=== PATIENT | female | born 1990 | race Caucasian/White ===

== ENCOUNTER 2020-03-18 14:22 | Outpatient (REF) | payer OTHER, SELFPAY | END 2020-03-18 14:23 | disposition home or self-care (01) | LOC: HO.LAB 14:22 | PROVIDERS: Visit Provider Internal Medicine | DX: Z20.828 Contact with and (suspected) exposure to other viral communicable diseases (principal) | CPT/HCPCS: C9803; U0003 ==

== ENCOUNTER 2025-03-06 17:08 | Emergency (ER) | payer OTHER, SELFPAY ==
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
[2025-03-06 17:22] VITALS: BP 122/57; PULSE 84; RESP 18; TEMP 36.7; O2SAT 97; BMI 26.5
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
[2025-03-06 18:06] VITALS: BP 111/72; PULSE 81; RESP 16; TEMP 36.8; O2SAT 99
[2025-03-06 18:32] VITALS: BP 111/72; PULSE 81; RESP 16; TEMP 36.8; O2SAT 99
--- OUTSIDE RECORDS SUMMARY | 2025-03-06 19:09 | XMS_ITS | Data Portability ---
Author Organization [facility], Main Office Address [address] [facility] [address] [place] [id number] Care Team Providers Care Floor Plan Adjuster Name Role Phone MERRILL GARRETT Machine Assembler For Puller Over [facility] EMANUEL MARISCAL Primary Care Provider [phone] Assessment Encounter Date Assessment Date Assessment LastModified by Organization Details LastModified Time 07/10/2020 07/10/2020 This service was provided using telemedicine. Patient consented to telephone visit Patient was located at other Provider was located in the office. No other persons participated in the telemedicine visit except for the patient unless otherwise indicated here. Total time of visit was 13 minutes. [email or web address] Not available 07/10/2020 09:21:49 Plan of Treatment Reminders Order Date Submit Date Provider Last Modified By Organization Details Last Modified Time Details Appointments None recorded. Lab CMP, serum or plasma 2019 [facility], [address], [address], [place], [address], 0 19:52:01 CBC w/ auto diff 2019 020 [facility], [address], [place], [address], 0 16:01:08 T4, free, serum 2019 020 [facility], [address], [address], [place], [address], 0 20:55:42 TSH, serum or plasma 2019 020 [facility], [address] [facility], [facility] [address], [place], [address], 0 20:55:43 thyroid peroxidase (tpo) Ab, serum 2019 020 [facility], [address] [facility], [facility] [address], [place], [address], 0 09:29:49 Referral None recorded. Procedures None recorded. Surgeries None recorded. Imaging None recorded. Medication Orders diclofenac 1 % topical gel 2021 022 [facility]/Pharmacy #[id number], [address] [place], [address], 11:34:02 lidocaine 3 %-hydrocort isone 0.5 % rectal cream 2020 021 DBA_PATCH _[id number] [facility]/Pharmacy #[id number], [address] [place], [address], 09:31:48 compounded medication 2020 [email or web address] [facility] [place], [address] [place] [address], [address], 2 11:07:54 ciprofloxac in 250 mg tablet 2020 021 [facility]/Pharmacy #[id number], [address] [facility], [place], [address], 11:19:45 Pyridium 200 mg tablet 2020 021 [id number], [address] [place], [address], 11:19:23 Patient TargetsNo targets recorded. Patient Instructions Encounter Date Encounter Id Patient Instructions Last Modified By Organization Details Last Modified Time 01/18/2020 [id number] call or return for worsening or concerns. [email or web address] Not available 01/18/2020 09:29:06 07/10/2020 [id number] Follow up if no improvement or if symptoms worsen. [email or web address] Not available 07/10/2020 09:20:50 02/13/2021 [id number] call or return for worsening or concerns [email or web address] Not available 02/13/2021 10:52:07 02/16/2022 [id number] : care instructions [email or web address] Not available 02/16/2022 11:36:18 wrist tendinitis : exercises jthabet Not available 02/16/2022 11:33:33 de quervain's disease: exercises jthabet Not available 02/16/2022 11:33:33 call/ return for worsening or concerns. [email or web address] Not available 02/16/2022 11:18:29 Reason for Referral None Reported. Results Created Date Observation Date Name Description Value Unit Range Abnormal Flag Note LastModifiedBy Organization Detail LastModifiedTime 01/18/2001/18/2020 CBC w/ auto diff WBC 7.5 K/mm3 (4.0-1 1.0) Not Available [facility] (Centralized Electronic Ordering - All Locations) Patient Can Go To The Location Of Their Choice, [id number] 01/18/2020 16:01:01/18/2001/18/2020 CBC w/ auto diff RBC 4.07 M/mm3 (4.20- 5.40) low Not Available [facility] (Centralized Electronic Ordering - All Locations) Patient Can Go To The Location Of Their Choice, [id number] 01/18/2020 16:01:01/18/2001/18/2020 CBC w/ auto diff HGB 13.7 gm/dL (11.7- 15.5) Not Available [facility] (Centralized Electronic Ordering - All Locations) Patient Can Go To The Location Of Their Choice, [id number] 01/18/2020 16:01:01/18/2001/18/2020 CBC w/ auto diff HCT 42.3 % (35.7- 45.8) Not Available [facility] (Centralized Electronic Ordering - All Locations) Patient Can Go To The Location Of Their Choice, [id number] 01/18/2020 16:01:01/18/2001/18/2020 CBC w/ auto diff MCV 103.9 fL (80.0- 100.0) high Not Available [facility] (Centralized Electronic Ordering - All Locations) Patient Can Go To The Location Of Their Choice, 01/18/2020 16:01:01/18/2001/18/2020 CBC w/ auto diff MCH 33.7 pg (27.0- 34.0) Not Available [facility] (Centralized Electronic Ordering - All Locations) Patient Can Go To The Location Of Their Choice, 01/18/2020 16:01:01/18/2001/18/2020 CBC w/ auto diff MCHC 32.4 g/dL (33.0- 37.0) low Not Available [facility] (Centralized Electronic Ordering - All Locations) Patient Can Go To The Location Of Their Choice, 01/18/2020 16:01:01/18/2001/18/2020 CBC w/ auto diff plt 220 K/mm3 (150-4 60) Not Available [facility] (Centralized Electronic Ordering - All Locations) Patient Can Go To The Location Of Their Choice, 01/18/2020 16:01:01/18/2001/18/2020 CBC w/ auto diff RDW-SD 44.9 fL (<47.0 ) Not Available [facility] (Centralized Electronic Ordering - All Locations) Patient Can Go To The Location Of Their Choice, 01/18/2020 16:01:01/18/2001/18/2020 CBC w/ auto diff MPV 10.6 fL (9.4-1 2.4) Not Available [facility] (Centralized Electronic Ordering - All Locations) Patient Can Go To The Location Of Their Choice, 01/18/2020 16:01:01/18/2001/18/2020 CBC w/ auto diff automated NRBC 0.0 #/100 _WBC' s Not Available [facility] (Centralized Electronic Ordering - All Locations) Patient Can Go To The Location Of Their Choice, 01/18/2020 16:01:01/18/2001/18/2020 CBC w/ auto diff abs. NRBC 0.0 K/mm3 Not Available [facility] (Centralized Electronic Ordering - All Locations) Patient Can Go To The Location Of Their Choice, 01/18/2020 16:01:01/18/2001/18/2020 CBC w/ auto diff neut # 4.8 K/mm3 (1.3-7 .0) Not Available [facility] (Centralized Electronic Ordering - All Locations) Patient Can Go To The Location Of Their Choice, 01/18/2020 16:01:01/18/2001/18/2020 CBC w/ auto diff lymph # 2.1 K/mm3 (0.8-3 .1) Not Available [facility] (Centralized Electronic Ordering - All Locations) Patient Can Go To The Location Of Their Choice, 01/18/2020 16:01:01/18/2001/18/2020 CBC w/ auto diff mono# 0.4 K/mm3 (0.4-0 .9) Not Available [facility] (Centralized Electronic Ordering - All Locations) Patient Can Go To The Location Of Their Choice, 01/18/2020 16:01:01/18/2001/18/2020 CBC w/ auto diff eo # 0.2 K/mm3 (0.0-0 .4) Not Available [facility] (Centralized Electronic Ordering - All Locations) Patient Can Go To The Location Of Their Choice, 01/18/2020 16:01:01/18/2001/18/2020 CBC w/ auto diff baso # 0.1 K/mm3 (0.0-0 .1) Not Available [facility] (Centralized Electronic Ordering - All Locations) Patient Can Go To The Location Of Their Choice, 01/18/2020 16:01:01/18/2001/18/2020 CBC w/ auto diff abs. imm gran 0.0 K/mm3 Not Available [facility] (Centralized Electronic Ordering - All Locations) Patient Can Go To The Location Of Their Choice, 01/18/2020 16:01:01/18/2001/18/2020 CBC w/ auto diff neut 63.6 % (44-76 ) Not Available [facility] (Centralized Electronic Ordering - All Locations) Patient Can Go To The Location Of Their Choice, 01/18/2020 16:01:01/18/2001/18/2020 CBC w/ auto diff lymph 28.5 % (15-43 ) Not Available [facility] (Centralized Electronic Ordering - All Locations) Patient Can Go To The Location Of Their Choice, 01/18/2020 16:01:01/18/2001/18/2020 CBC w/ auto diff monocyte 4.8 % (4.5-1 0.5) Not Available [facility] (Centralized Electronic Ordering - All Locations) Patient Can Go To The Location Of Their Choice, 01/18/2020 16:01:01/18/2001/18/2020 CBC w/ auto diff eo 2.0 % (0-6) Not Available [facility] (Centralized Electronic Ordering - All Locations) Patient Can Go To The Location Of Their Choice, 01/18/2020 16:01:01/18/2001/18/2020 CBC w/ auto diff baso 0.8 % (0-2) Not Available [facility] (Centralized Electronic Ordering - All Locations) Patient Can Go To The Location Of Their Choice, 01/18/2020 16:01:01/18/2001/18/2020 CBC w/ auto diff imm gran 0.3 % Not Available [facility] (Centralized Electronic Ordering - All Locations) Patient Can Go To The Location Of Their Choice, 01/18/2020 16:01:01/18/2001/18/2020 CMP, serum or plasm a glucose 90 mg/dL (70-99 ) Not Available [facility] (Centralized Electronic Ordering - All Locations) Patient Can Go To The Location Of Their Choice, 01/18/2020 19:52:01/18/2001/18/2020 CMP, serum or plasm a BUN 14 mg/dL (6-20) Not Available [facility] (Centralized Electronic Ordering - All Locations) Patient Can Go To The Location Of Their Choice, 01/18/2020 19:52:01/18/2001/18/2020 CMP, serum or plasm a creatinine 0.8 mg/dL (0.5-1 .0) Not Available [facility] (Centralized Electronic Ordering - All Locations) Patient Can Go To The Location Of Their Choice, 01/18/2020 19:52:01/18/2001/18/2020 CMP, serum or plasm a sodium 141 mmol/ L (133-1 45) Not Available [facility] (Centralized Electronic Ordering - All Locations) Patient Can Go To The Location Of Their Choice, 01/18/2020 19:52:01/18/2001/18/2020 CMP, serum or plasm a potassium 4.4 mmol/ L (3.6-5 .2) Not Available [facility] (Centralized Electronic Ordering - All Locations) Patient Can Go To The Location Of Their Choice, 01/18/2020 19:52:01/18/2001/18/2020 CMP, serum or plasm a chloride 104 mmol/ L (98-10 7) Not Available [facility] (Centralized Electronic Ordering - All Locations) Patient Can Go To The Location Of Their Choice, 01/18/2020 19:52:01/18/2001/18/2020 CMP, serum or plasm a bicarbonate 26 mmol/ L (22-29 ) Not Available [facility] (Centralized Electronic Ordering - All Locations) Patient Can Go To The Location Of Their Choice, 01/18/2020 19:52:01/18/2001/18/2020 CMP, serum or plasm a anion gap 11 (4-17) Not Available [facility] (Centralized Electronic Ordering - All Locations) Patient Can Go To The Location Of Their Choice, 01/18/2020 19:52:01/18/2001/18/2020 CMP, serum or plasm a albumin 5.2 gm/dL (3.4-4 .8) high Not Available [facility] (Centralized Electronic Ordering - All Locations) Patient Can Go To The Location Of Their Choice, 01/18/2020 19:52:01/18/2001/18/2020 CMP, serum or plasm a calcium 9.8 mg/dL (8.6-1 0.5) Not Available [facility] (Centralized Electronic Ordering - All Locations) Patient Can Go To The Location Of Their Choice, 01/18/2020 19:52:01/18/2001/18/2020 CMP, serum or plasm a bilirubin,to carlos 0.5 mg/dL (0-1.2 ) Not Available [facility] (Centralized Electronic Ordering - All Locations) Patient Can Go To The Location Of Their Choice, 01/18/2020 19:52:01/18/2001/18/2020 CMP, serum or plasm a total protein 7.1 gm/dL (6.2-8 .2) Not Available [facility] (Centralized Electronic Ordering - All Locations) Patient Can Go To The Location Of Their Choice, 01/18/2020 19:52:01/18/2001/18/2020 CMP, serum or plasm a Ag ratio 2.7 Not Available [facility] (Centralized Electronic Ordering - All Locations) Patient Can Go To The Location Of Their Choice, 01/18/2020 19:52:01/18/2001/18/2020 CMP, serum or plasm a AST 22 U/L (0-32) Not Available [facility] (Centralized Electronic Ordering - All Locations) Patient Can Go To The Location Of Their Choice, 01/18/2020 19:52:01/18/2001/18/2020 CMP, serum or plasm a alk phos 68 U/L (35-10 4) Not Available [facility] (Centralized Electronic Ordering - All Locations) Patient Can Go To The Location Of Their Choice, 01/18/2020 19:52:01/18/2001/18/2020 CMP, serum or plasm a ALT 15 U/L (0-33) Not Available [facility] (Centralized Electronic Ordering - All Locations) Patient Can Go To The Location Of Their Choice, 01/18/2020 19:52:01/18/2001/18/2020 CMP, serum or plasm a est GFR non 102 mL/mi n/1.7 3_M2 Creat inine based estim ated glome rular filtr ation rate (eGFR ) is calcu lated using the Chron ic Kidne y Disea se Epide miolo gy Colla borat ion (CKD- EPI). The CKD-E PI creat inine equat ion has not been valid ated in child christian (<18 years ), pregn ant women or in some racia l or ethni c subgr oups other than Cauca sians and Afric an Ameri cans. Not Available [facility] (Centralized Electronic Ordering - All Locations) Patient Can Go To The Location Of Their Choice, 01/18/2020 19:52:01 01/18/2001/18/2020 CMP, serum or plasm a est GFR 118 mL/mi n/1.7 3_M2 Creat inine based estim ated glome rular filtr ation rate (eGFR ) is calcu lated using the Chron ic Kidne y Disea se Epide miolo gy Colla borat ion (CKD- EPI). The CKD-E PI creat inine equat ion has not been valid ated in child christian (<18 years ), pregn ant women or in some racia l or ethni c subgr oups other than Cauca sians and Afric an Ameri cans. Not Available [facility] (Centralized Electronic Ordering - All Locations) Patient Can Go To The Location Of Their Choice, 01/18/2020 19:52:01 01/18/2001/18/2020 T4, free, serum free T4 1.16 NG/dL (0.70- 1.80) Not Available [facility] (Centralized Electronic Ordering - All Locations) Patient Can Go To The Location Of Their Choice, 01/18/2020 20:55:42 01/18/2001/18/2020 TSH, serum or plasm a TSH 0.44 uIU/m L (0.4-4 .00) Not Available [facility] (Centralized Electronic Ordering - All Locations) Patient Can Go To The Location Of Their Choice, 01/18/2020 20:55:43 01/18/2001/19/2020 thyro id perox idase (tpo) Ab, serum anti thyroid peroxidase Ab <3.0 IU/mL (<5.6) Antib qian measu remen t repre sents one rocio eter in a multi crite joanna diagn ostic proce ss. Corre late resul ts with clini sarita prese ntati on. This test was perfo rmed on the Abbot t Archi tect immun oassa y syste m. Not Available [facility] (Centralized Electronic Ordering - All Locations) Patient Can Go To The Location Of Their Choice, 01/19/2020 09:29:49 Result Notes None recorded. Problems Name Problem SNOMED Code Status Onset Date Resolution Date Notes Provider Name and Address Organization Details Recorded Time Administ ration of Haemophi jose manuel influenz ae type b vaccine Completed 200911/06/2013 RECORDED 02/04/20 10 10:41AM BY TIM PUGA, HISTORIC AL SUMMARY Liyah WATTS- [address] [facility] [address], [place], [place], [address], [facility] 6 13:53:03 Active or passive immuniza tion Completed 200911/06/2013 RECORDED 02/04/20 10 10:38AM BY TIM PUGA HISTORIC AL SUMMARY Liyah WATTS- [address] [facility] [address], [place], [address], [facility] 6 13:53:03 Administ ration of viral vaccine Completed 200911/06/2013 RECORDED 02/04/20 10 10:42AM BY TIM PUGA, HISTORIC AL SUMMARY Liyah WATTS- [address] [facility] [address], [place], [address], [facility] 6 13:53:03 Administ ration of poliomye litis vaccine Completed 200911/06/2013 RECORDED 02/04/20 10 10:35AM BY TIM PUGA, HISTORIC AL SUMMARY Liyah WATTS- [address] [facility] [address], [place], [address], [facility] 6 13:53:03 Administ ration of diphther ia, pertussi s, and tetanus vaccine Completed 200911/06/2013 RECORDED 02/04/20 10 10:33AM BY TIM PUGA HISTORIC AL SUMMARY Liyah WATTS-Cristy [address] [facility] [address], [place], [address], [facility] 6 13:53:03 Administ ration of bacteria l and viral vaccine Completed 200911/06/2013 RECORDED 02/04/20 10 10:35AM BY TIM PUGA HISTORIC AL SUMMARY Liyah WATTS-Cristy [address] [facility] [address], [place], [address], [facility] 6 13:53:03 Administ ration of measles and mumps and rubella vaccine Completed 200911/06/2013 RECORDED 02/04/20 10 10:33AM BY TIM PUGA HISTORIC AL SUMMARY Liyah Alexander [place]- [address] [facility] [address], [place], [address], [facility] 6 13:53:03 Varicell a vaccinat ion Completed 200911/06/2013 RECORDED 02/04/20 10 10:40AM BY JANET CHANDRAIC AL SUMMARY Liyah Alexander [place]- [address] [facility] [address], [place], [address], [facility] 6 13:53:03 Administ ration of Haemophi jose manuel influenz ae type b vaccine Completed 200911/29/2013 RECORDED 02/04/20 10 10:41AM BY TIM PUGA HISTORIC AL SUMMARY Liyah Alexander UT-C [address] [facility] [address], [place], [address], [facility] 6 13:53:03 Active or passive immuniza tion Completed 200911/29/2013 RECORDED 02/04/20 10 10:38AM BY JANET CHANDRAIC AL SUMMARY Liyah Alexander [place]- [address] [facility] [address], [place], [address], [facility] 6 13:53:03 Administ ration of viral vaccine Completed 200911/29/2013 RECORDED 02/04/20 10 10:42AM BY TIM PUGA HISTORIC AL SUMMARY Liyah Alexander [place]-C [address] [facility] [address], [place], [address], [facility] 6 13:53:03 Administ ration of poliomye litis vaccine Completed 200911/29/2013 RECORDED 02/04/20 10 10:35AM BY TIM PUGA HISTORIC AL SUMMARY [facility] [address] [facility] [address], [place], [address], [facility] 6 13:53:03 Administ ration of diphther ia, pertussi s, and tetanus vaccine Completed 200911/29/2013 RECORDED 02/04/20 10 10:33AM BY TIM PUGA, HISTORIC AL SUMMARY Liyah [facility] [address] [facility] [address], [place], [address], [facility] 6 13:53:03 Administ ration of bacteria l and viral vaccine Completed 200911/29/2013 RECORDED 02/04/20 10 10:35AM BY TIM PUGA, HISTORIC AL SUMMARY Liyah [facility] [address] [facility] [address], [place], [address], [facility] 6 13:53:03 Administ ration of measles and mumps and rubella vaccine Completed 200911/29/2013 RECORDED 02/04/20 10 10:33AM BY TIM PUGA, HISTORIC AL SUMMARY Liyah [facility] [address] [facility] [address], [place], [address], [facility] 6 13:53:03 Varicell a vaccinat ion Completed 200911/29/2013 RECORDED 02/04/20 10 10:40AM BY TIM PUGA, HISTORIC AL [facility] [address] [facility] [address], [place], [address], [facility] 6 13:53:03 Administ ration of Haemophi jose manuel influenz ae type b vaccine Completed 200911/30/2013 RECORDED 02/04/20 10 10:41AM BY TIM PUGA HISTORIC AL SUMMARY Liyah Alexander PA- [address] [facility] [address], [place], [place], [address], [facility] 6 13:53:03 Active or passive immuniza tion Completed 200911/30/2013 RECORDED 02/04/20 10 10:38AM BY TIM PUGA HISTORIC AL SUMMARY Liyah CEJA [address] [facility] [address], [place], [place], [address], [facility] 6 13:53:03 Administ ration of viral vaccine Completed 200911/30/2013 RECORDED 02/04/20 10 10:42AM BY TIM PUGA HISTORONI AL SUMMARY Liyah CEJA [address] [facility] [address], [place], [address], [facility] 6 13:53:03 Administ ration of poliomye litis vaccine Completed 200911/30/2013 RECORDED 02/04/20 10 10:35AM BY TIM PUGA HISTORIC AL SUMMARY Liyah CEJA [address] [facility] [address], [place], [place], [address], [facility] 6 13:53:03 Administ ration of diphther ia, pertussi s, and tetanus vaccine Completed 200911/30/2013 RECORDED 02/04/20 10 10:33AM BY JANET CHANDRAIC AL SUMMARY Liyah WATTS [address] [facility] [address], [place], [address], [facility] 6 13:53:03 Administ ration of bacteria l and viral vaccine Completed 200911/30/2013 RECORDED 02/04/20 10 10:35AM BY TIM PUGA HISTORIC AL SUMMARY Liyah CEJA [address] [facility] [address], [place], [address], [facility] 6 13:53:03 Administ ration of measles and mumps and rubella vaccine Completed 200911/30/2013 RECORDED 02/04/20 10 10:33AM BY TIM PUGA, HISTORIC AL SUMMARY Liyah Alexander PA-C [address] [facility] [address], [place], [address], [facility] 6 13:53:03 Varicell a vaccinat ion Completed 200911/30/2013 RECORDED 02/04/20 10 10:40AM BY TIM PUGA, HISTORIC AL SUMMARY Liyah WATTS-C [address] [facility] [address], [place], [address], [facility] 6 13:53:03 Infectiv e hepatiti s immuniza tion Completed 201110/21/2016 RECORDED 08/25/19 12 11:38AM BY MOLLY RICHARDS MA, OFFICE VISIT [place], [facility] 7 13:06:13 Administ ration of tetanus vaccine Completed 201110/21/2016 RECORDED 08/25/19 12 11:38AM BY MOLLY RICHARDS MA, OFFICE VISIT [place], [facility] 7 13:06:06 Acute upper respirat ory infectio n [id number] Completed 201110/21/2016 RECORDED 08/25/19 12 12:03PM BY CUCA NOLASCO PA-C, OFFICE VISIT [place], [facility] 7 13:06:17 Viral disease [id number] Completed 201101/18/2020 [place], [facility] 0 09:12:18 Attentio n deficit hyperact ivity disorder [id number] Completed 201111/06/2013 RECORDED 12/21/19 12 10:15AM BY STEFANIE HALL, ANNOTATI ON/ADDEN DUM Liyah Alexander PA-C [address] [facility] [address], [place], [address], [facility] 6 13:53:03 Influenz a vaccine needed [id number] 06 Completed 201111/06/2013 RECORDED 12/21/19 12 1:04PM BY STEFANIE HALL, OFFICE VISIT Liyah Alexander PA-C [address] [facility] [address], [place], [address], [facility] 6 13:53:03 Adult health examinat ion Completed 201110/21/2016 IMPRESSI ON: WELL FEMALE; RECORDED 12/21/19 12 12:59PM BY STEFANIE HALL, OFFICE VISIT Dina Raygoza MA null, [facility] 7 13:06:08 Tubercul osis screenin g Completed 201111/06/2013 RESOLVED DATE: 12/21/19 12; IMPRESSI ON: NEEDS THIS FOR SCHOOL; RECORDED 12/21/19 12 12:52PM BY STEFANIE HALL, OFFICE VISIT Liyah Alexander PA-C [address] [facility] [address], [place], [address], [facility] 6 13:53:03 Tobacco dependen ce syndrome [id number] Active 2011 [place], [facility] 0 09:12:08 Attentio n deficit hyperact ivity disorder [id number] Completed 201111/29/2013 RECORDED 12/21/19 12 10:15AM BY STEFANIE HALL, ANNOTATI ON/ADDEN DUM Liyah Alexander PA-C [address] [facility] [address], [place], [address], [facility] 6 13:53:03 Influenz a vaccine needed [id number] 06 Completed 201111/29/2013 RECORDED 12/21/19 12 1:04PM BY STEFANIE HALL, OFFICE VISIT Liyah Alexander PA-C [address] [facility] [address], [place], [address], [facility] 6 13:53:03 Tubercul osis screenin g Completed 201111/29/2013 RESOLVED DATE: 12/21/19 12; IMPRESSI ON: NEEDS THIS FOR SCHOOL; RECORDED 12/21/19 12 12:52PM BY STEFANIE HALL, OFFICE VISIT Liyah Alexander PA-C [address] [facility] [address], [place], [address], [facility] 6 13:53:03 Attentio n deficit hyperact ivity disorder [id number] Completed 201111/30/2013 RECORDED 12/21/19 12 10:15AM BY STEFANIE HALL, ANNOTATI ON/ADDEN DUM Liyah Alexander PA-C [address] [facility] [address], [place], [address], [facility] 6 13:53:03 Influenz a vaccine needed [id number] 06 Completed 201111/30/2013 RECORDED 12/21/19 12 1:04PM BY STEFANIE HALL, OFFICE VISIT Liyah Alexander PA-C [address] [facility] [address], [place], [address], [facility] 6 13:53:03 Tubercul osis screenin g Completed 201111/30/2013 RESOLVED DATE: 12/21/19 12; IMPRESSI ON: NEEDS THIS FOR SCHOOL; RECORDED 12/21/19 12 12:52PM BY STEFANIE HALL, OFFICE VISIT Liyah Alexander PA-C [address] [address], [place] [place], [address], [facility] 6 13:53:03 Developm ental reading disorder [id number] Completed 201211/06/2013 RECORDED 05/16/19 13 1:53AM BY STEFANIE HALL, ANNOTATI ON/ADDEN DUM Liyah Alexander PA-C [address], [place], [address], [facility] 6 13:53:03 Developm ental reading disorder 27042343 Completed 201211/29/2013 RECORDED 05/16/19 13 1:53AM BY STEFANIE HALL, ANNOTATI ON/JUMA Pelletier Benjamin WATTS-C [address] [facility] [address], [place], [address], [facility] 6 13:53:03 Developm ental reading disorder 89011126 Completed 201211/30/2013 RECORDED 05/16/19 13 1:53AM BY STEFANIE HALL, ANNOTATI ON/JUMA Pelletier Benjamin WATTS-C [address] [facility] [address], [place], [address], [facility] 6 13:53:03 Allergic rhinitis 12651865 Active 2012 TONIA Cruz, [facility] 0 09:12:02 Urinary tract infectio us disease 43379604 Completed 201201/18/2020 TONIA Cruz, [facility] 0 09:12:15 Pain of right wrist 93058765295 9100 Active 2021 KAM Beard [address] [facility] [address], [place], [address], [facility] 2 11:33:06 Pain of breast 30300752 Active 2021 KAM Beard [address] [facility] [address], [place], [address], [facility] 2 11:34:27 Problem Notes None recorded. Procedures Surgical History Date Name Laterality Status Provider Name and Address Organization Details Recorded Time 04/25/2019 Date of Last Pap Smear completed KAM Beard [address] [facility] [address], [place], [address], [place] [facility] 02/13/2021 10:49:20 No surg proc w/in 30 days completed Naheed glover MA [facility] 01/18/2020 09:15:30 Imaging Results None recorded. Procedure Notes None recorded. Medical Equipment None Reported. Allergies No known drug allergies Medications Name Sig Start Date Stop Date Status Note LastModified by Organization Details LastModified Time compounde d medicatio n apply to anal area bid for a month 02/16 completed Not Available Not Available Not Available orsythia 0.1-20 mg-mcg tabs 10/21 completed Not Available Not Available Not Available alrex 0.2 % susp 10/21 completed Not Available Not Available Not Available hers 20ml acne az (0.02%) Apply 1 pump to face nightly 02/16 completed Not Available Not Available Not Available methyclot hiazide (bulk) powder active RECORDED 02/27/20 10 1:49PM BY NAHEED BAH MA, OFFICE VISIT; Not Available Not Available Not Available fluconazo le 150 mg tablet Take by oral route for 1 day. 01/23 completed Not Available Not Available Not Available methylphe nidate 10 mg tablet active RECORDED 02/27/20 10 1:49PM BY NAHEED BAH MA, OFFICE VISIT; Not Available Not Available Not Available methylphe nidate 20 mg tablet DAILY 02/26 completed RECORDED 02/27/20 10 1:53PM BY NAHEED BAH MA, OFFICE VISIT; Not Available Not Available Not Available phenazopy ridine 200 mg tablet TAKE 1 TABLET BY MOUTH 3 TIMES A DAY FOR 2 DAYS 01/23 completed Not Available Not Available Not Available clotrimaz ole 1 % vaginal cream INSERT ONE APPLICAT ORFUL NIGHTLY X7 NIGHTS. 02/16 completed Not Available Not Available Not Available ciproflox acin 250 mg tablet TAKE 1 TABLET BY MOUTH TWICE A DAY FOR 3 DAYS 01/23 completed Not Available Not Available Not Available sulfameth oxazole 800 mg-trimet hoprim 160 mg tablet Take 1 tablet every 12 hours by oral route as directed for 5 days. 01/17 completed Not Available Not Available Not Available imiquimod 5 % topical cream packet APPLY 3 TIMES WEEKLY DIRECTED AT BEDTIME 01/23 completed Not Available Not Available Not Available benzonata te 100 mg capsule THREE TIMES DAILY, NEEDED 08/05 completed RECORDED 09/04/19 11 1:10PM BY STEFANIE GARCIA, MEDICATI ON AUTO-PIETRO CTIVATIO N;MAY CAUSE DROWSINE SS. Not Available Not Available Not Available methylphe nidate ER 20 mg tablet,ex tended release DAILY active RECORDED 12/21/19 12 1:03PM BY STEFANIE HALL, ANNOTATI ON/ADDEN DUM; Not Available Not Available Not Available docusate sodium 100 mg capsule TAKE 1 CAPSULE BY MOUTH TWICE A DAY 02/16 completed Not Available Not Available Not Available lidocaine 3 %-hydroco rtisone 0.5 % topical cream INSERT 1 APPLICAT ION TWICE A DAY BY RECTAL ROUTE FOR 10 DAYS. 02/16 completed Not Available Not Available Not Available ibuprofen 600 mg tablet TAKE 1 TABLET BY MOUTH EVERY 6 HOURS NEEDED FOR MODERATE PAIN SCALE 4 - 6 02/16 completed Not Available Not Available Not Available fluticaso ne propionat e 50 mcg/actua tion nasal spray,aguilar pension Inhale 2 sprays every day by intranas al route for 30 days. 02/16 completed Not Available Not Available Not Available medroxypr ogesteron e 150 mg/mL intramusc ular suspensio n INJECT 1 ML INTO THE MUSCLE EVERY 3 MONTHS. 02/13 completed Not Available Not Available Not Available oxycodone 5 mg tablet TAKE 1 TABLET EVERY 6 HOURS NEEDED FOR SEVERE PAIN SCALE 7-10 02/16 completed Not Available Not Available Not Available Ortho Tri-Cycle n LO (28) 0.18 mg/0.215 mg/0.25 mg-25 mcg tablet DAILY active RECORDED 12/21/19 12 1:03PM BY STEFANIE HALL, ANNOTATI ON/ADDEN DUM; Not Available Not Available Not Available lidocaine 3 %-hydroco rtisone 0.5 % rectal cream Insert 1 applicat ion twice a day by rectal route for 10 days. 02/13 completed Not Available Not Available Not Available nitrofura ntoin monohydra te/macroc rystals 100 mg capsule TAKE 1 CAPSULE BY MOUTH TWICE A DAY FOR 7 DAYS 02/16 completed Not Available Not Available Not Available Flonase DAILY 10/21 completed RECORDED 07/17/19 14 3:45PM BY TIESHA Cruz MD, REFILL REQUEST; NEEDED IN THE SPRING Not Available Not Available Not Available Guiatuss AT BEDTIME 08/31 completed RECORDED 12/10/19 12 2:27PM BY CUCA NOLASCO PA-C, MEDICATI ON AUTO-PIETRO CTIVATIO N; Not Available Not Available Not Available ferrous gluconate 324 mg (38 mg iron) tablet TAKE 1 TABLET BY MOUTH EVERY DAY 02/16 completed Not Available Not Available Not Available diclofena c 1 % topical gel APPLY 2 GRAMS TO THE AFFECTED AREA(S) BY TOPICAL ROUTE 4 TIMES PER DAY active Not Available Not Available No t Available Karoline Allergy 60 mg tablet BID 10/21 completed RECORDED 07/17/19 14 3:44PM BY TIESHA Cruz MD, REFILL REQUEST; Not Available Not Available Not Available M-Juanis Plus 27 mg iron-1 mg tablet TAKE 1 TABLET BY MOUTH EVERY DAY active Not Available Not Available No t Available Flowflex COVID-19 Antigen Home Test kit TEST DIRECTED TODAY 02/16 completed Not Available Not Available Not Available Vitals Date Recorded Body height Provider Name an d Address Organization Details Last Updated DateTime 07/10/2020 157.48 cm Naheed Vaca MA [facility] 07/10/2020 08:38:21 Date Recorded Body height Body mass index (BMI) Body weight Heart rate Oxygen saturation Oxygen saturation in Arterial blood by Pulse oximetry Body temperature Systolic And Diastolic Provider Name and Address Organization Details Last Updated DateTime 0 157.48 cm 16.1 kg/m2 51235.1 3 g 98 /min 98 % 98 % 98.24 [degF] 102/64 mm[Hg] Naheed menjivar MA [facility] 0 09:17:32 Date Recorded Body height Body mass index (BMI) Body weight Heart rate Oxygen saturation Oxygen saturation in Arterial blood by Pulse oximetry Body temperature Systolic And Diastolic Provider Name and Address Organization Details Last Updated DateTime 1 157.48 cm 17.6 kg/m2 46069.8 7 g 112 /min 99 % 99 % 98.42 [degF] 109/68 mm[Hg] Savanna Dunlap MA [facility] 1 11:25:01 Date Recorded Body height Body mass index (BMI) Body weight Heart rate Oxygen saturation Oxygen saturation in Arterial blood by Pulse oximetry Body temperature Systolic And Diastolic Provider Name and Address Organization Details Last Updated DateTime 1 157.48 cm 17.9 kg/m2 73381.0 6 g 81 /min 99 % 99 % 99.5 [degF] 123/57 mm[Hg] Jennifer Soto MA [facility] 1 10:37:54 Date Recorded Body height Body mass index (BMI) Body weight Heart rate Oxygen saturation Oxygen saturation in Arterial blood by Pulse oximetry Body temperature Systolic And Diastolic Provider Name and Address Organization Details Last Updated DateTime 2 157.48 cm 25.3 kg/m2 21936.5 5 g 98 /min 100 % 100 % 97.16 [degF] 111/81 mm[Hg] Khalida Myles MA [facility] 2 11:08:57 Social History Question Answer Notes LastModified by Organizat ion Details LastModified Time Tobacco Smoking Status Former Smoker [facility] [address] [address], [place], [address], [facility] 02/13/2021 10:48:36 Do You Have An Advance Directive? No Information not available 01/18/2020 Is Blood Transfusion Acceptable In An Emergency? Yes [email or web address] Information not available 10/21/2016 What Is Your Level Of Caffeine Consumption? Moderate 20 Oz Of Coffee Daily W/espresso Shot Information not available 01/18/2020 How Much Tobacco Do You Chew? None [email or web address] Information not available 10/21/2016 What Type Of Diet Are You Following? REGULAR [email or web address] Information not available 10/21/2016 Which Illicit Or Recreational Drugs Have You Used? None Information not available 01/18/2020 When Did You Quit Smoking? 1-5yearssinc elastcigaret te Information not available 02/13/2021 Live Alone Or With Others? With Others Bf Information not available 02/13/2021 Do You Take Precautions To Prevent Distracted Driving? Yes [email or web address] Information not available 10/21/2016 How Often Do You Need To Have Someone Help You When You Read Instructions, Pamphlets, Or Other Written Material From Your Doctor Or Pharmacy? Sometimes [email or web address] Information not available 10/21/2016 Have You Served In The ? No [email or web address] Information not available 10/21/2016 Have You Or Anyone In Your Household Had Any Of The Following Symptoms In The Last 14 Days: Sore Throat, Cough, Chills, Body Aches For Unknown Reasons, Shortness Of Breath For Unknown Reasons, Loss Of Smell, Loss Of Taste, Fever At Or Greater Than 100 Degrees Fahrenheit? No Information not available 01/18/2020 Are You Or Anyone In Your Household A Health Care Provider Or Emergency Responder? No Information not available 01/18/2020 To The Best Of Your Knowledge Have You Been In Close Proximity To Any Individual Who Tested Positive For COVID-19? No Information not available 01/18/2020 Have You Recently Traveled To A COVID-19 High Risk Area Or Gathering In The Last 10 Days? No Information not available 07/10/2020 What Was The Date Of Your Most Recent Tobacco Screening? 02/13/2021 [email or web address] Information not available 02/13/2021 How Many Children Do You Have? 0 [email or web address] Information not available 10/21/2016 What Is Your Current Pack Years? [email or web address] Information not available 07/10/2020 Seat Belts Used Routinely Yes [email or web address] Information not available 10/21/2016 Are You Sexually Active? No [email or web address] Information not available 10/21/2016 Smoke Alarm In Home Yes [email or web address] Information not available 10/21/2016 At What Age Did You Start Smoking Tobacco? 22 Information not available 01/18/2020 Are You Passively Exposed To Smoke? No Information not available 01/18/2020 How Much Tobacco Do You Smoke? 1 PPW 1-2 Cigarettes A Day Information not available 01/18/2020 Do You Use Sunscreen Routinely? Yes [email or web address] Information not available 10/21/2016 How Many Years Have You Smoked Tobacco? 8 Information not available 07/10/2020 Sex: Female Functional Status Question Answer Note LastModified by Organizat ion Details LastModified Time Do you or have you ever used any other forms of tobacco or nicotine? Yes Information not available 02/13/2021 What is your level of alcohol consumption? Occasional Information not available 02/13/2021 Do you or have you ever used smokeless tobacco? Never used smokeless tobacco Information not available 01/18/2020 Are you currently employed? Yes [email or web address] Information not available 10/21/2016 Are you able to care for yourself independently? 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 Current user of electronic cigarettes Information not available 02/13/2021 What is your exercise level? None [email or web address] Information not available 10/21/2016 Mental Status None recorded. Family History Relationship Description Onset Age of this Age Resolved Age Notes LastModified by Organization Details LastModified Time Father No current problems or disability [email or web address] s Not available 01/18/2020 09:12:21 Mother No current problems or disability [email or web address] s Not available 01/18/2020 09:12:21 Notes:NO DFH of breast or co galo cancer Medical History No medical history recorded. Gynecological History Statement/Question Response STIs/STDs N Menses Monthly Y Abnormal Pap N Date of Last Pap Smear 04/25/2019 Current Control Method None LMP Approximate Sexually Active? Y Obstetrics History GPAL:G 0 P 0 0 0 0 Immunizations Vaccine Type Date Status Note Provider Name and Address Organization Details Recorded Time COVID-19, mRNA, LNP-S, PF, 30 mcg/0.3 mL dose 08/09/19 21 completed Kasey Puga null, [facility] 01/26/2021 11:05:28 COVID-19, mRNA, LNP-S, PF, 30 mcg/0.3 mL dose 08/30/19 21 completed Kasey Puga null, [facility] 01/26/2021 11:05:33 MMR 05/28/18 93 completed Not Available [facility] 11/06/2013 13:40:35 MMR 05/25/18 97 completed Not Available [facility] 11/06/2013 13:40:35 DTaP 04/25/18 92 completed Not Available [facility] 11/06/2013 13:40:35 DTaP 06/27/18 92 completed Not Available [facility] 11/06/2013 13:40:36 DTaP 08/29/18 92 completed Not Available [facility] 11/06/2013 13:40:36 DTaP 10/30/18 93 completed Not Available [facility] 11/06/2013 13:40:36 Tdap 05/07/19 09 completed Not Available [facility] 11/06/2013 13:40:36 IPV 04/25/18 92 completed Not Available [facility] 11/06/2013 13:40:36 IPV 06/27/18 92 completed Not Available [facility] 11/06/2013 13:40:36 IPV 05/25/18 97 completed Not Available [facility] 11/06/2013 13:40:36 Td (adult), 2 Lf tetanus toxoid, preservative free, adsorbed 04/30/19 03 completed Not Available [facility] 11/06/2013 13:40:36 Meningococcal MCV4O 03/01/20 07 completed Not Available [facility] 11/06/2013 13:40:36 Hep B, adolescent or pediatric 05/25/18 97 completed Not Available [facility] 11/06/2013 13:40:36 Hep B, adolescent or pediatric 07/17/18 97 completed Not Available [facility] 11/06/2013 13:40:36 Hep B, adolescent or pediatric 01/23/19 97 completed Not Available [facility] 11/06/2013 13:40:36 varicella 04/25/18 95 completed Not Available [facility] 11/06/2013 13:40:36 Hib (HbOC) 04/25/18 92 completed Not Available [facility] 11/06/2013 13:40:36 Hib (HbOC) 06/27/18 92 completed Not Available [facility] 11/06/2013 13:40:36 Hib (HbOC) 08/29/18 92 completed Not Available [facility] 11/06/2013 13:40:36 Hib (HbOC) 05/28/18 93 completed Not Available [facility] 11/06/2013 13:40:36 HPV, quadrivalent 03/01/20 07 completed Not Available [facility] 11/06/2013 13:40:36 HPV, quadrivalent 05/02/19 08 completed Not Available [facility] 11/06/2013 13:40:36 HPV, quadrivalent 09/05/19 08 completed Not Available [facility] 11/06/2013 13:40:36 Influenza, split virus, trivalent, preservative 12/21/19 12 completed Not Available [facility] 11/06/2013 13:40:36 Tdap 01/18/20 20 completed TONIA [facility] 01/18/2020 09:51:53 Influenza, split virus, quadrivalent, PF 01/18/20 20 cancelled patient objection TONIA [facility] 01/18/2020 09:11:57 Past Encounters Encounter ID Performer Location Encounter Start Date Encounter Closed Date Diagnosis/Indication Diagnosis SNOMED-CT Code Diagnosis ICD10 Code Diagnosis IMO Codes Diagnosis Note [id number] autoEComm erce [address] [facility] [address] [place] [address] 02/26/2010 00:00:00 [id number] auto[facility]Comm erce [address] [facility] [address] [place] [address] 07/29/2010 00:00:00 [id number] auto[facility]Comm erce [address] [facility] [place] [address] 08/25/2011 00:00:00 [id number] autoEComm erce [address] [facility] [address] [place] [address] 12/21/2011 00:00:00 [id number] Liyah Alexander PA-C Main Office [address] [place] [address] [place] [address] 07/08/2015 09:32:01 07/08/2015 10:14:06 Allergic rhinitis 39367690 J30.9 Seasonal allergic rhinitis. Start otc Karoline either 60 mg BID or 180 mg daily. Start Fluticason e spray qd. Nasal saline TID. Sudafed for congestion PRN. F/u as needed. [id number] Tiesha humphreys MD Main Office [address] [place] [address] [place] [address] 10/21/2016 13:01:42 10/21/2016 13:52:26 Adult health examination 312037585 Z00.00 see below, other screening utd Involuntar y weight loss 681604810 R63.4 concern for hyperthyro idism, eyes look prominant but I have never met pt before, check labs, 2 month followup, referred to nutritioni to review food choices, calorie needs [id number] Nikhil Gray MD Main Office [address] [place] [address] [place] [address] 10/19/2019 15:27:43 10/19/2019 15:46:34 Urinary tract infectious disease 91551099 N39.0 sx of UTI since last night, burnign, frequency, urgency, hematuria. Will tx with bactrim x 5 days, if sx not improved in 3 days please call, may need urine culture/ new rx. hydration, rest, do not hold urine. [id number] Nikhil Gray MD Main Office [address] [place] [address] [place] [address] 01/18/2020 09:00:18 01/18/2020 09:46:03 Adult health examination 051824500 Z00.00 HM UTD, will request [employer] records and get bloodwork today. Administra tion of viral vaccine 44125089 Z23 Immunization refused 275 030439 Z28.21 Abnormal weight loss 267 288443 R63.4 [id number] Quintin Chan MD [facility] [address] [address] [place] [address] 07/10/2020 08:26:13 07/10/2020 09:41:20 Dysuria 66926020 R30.0 SYMPTOMS: burning with urination? yes frequency? yes hematuria? yes lower abdominal pain? no symptoms similar to previous UTI? yes POSSIBLE CONTRAINDI CATIONS TO TELEPHONE TREATMENT: > 65 years of age? no fevers? no recent UTI (within 1 month)? no new low back pain? no nausea or vomiting? no ? no history of interstiti al cystitis? no PROVIDER ACTION: Reviewed nursing notes? Recommende d action pt declined giving urine for ua/c&s - will rx empiricall y Antibiotic treatment Cipro x 3 days [id number] Nikhil Gray MD Main Office [address] [address] [place] [address] 02/13/2021 10:26:23 02/13/2021 11:06:04 Adult health examination 734958296 Z00.00 HM UTD, declines bloodwork this year External hemorrhoids 239 55994 K64.4 Anal fissure 31645424 K6 0.2 still present but not as tender, recommend she use aquaphor mixed with 1% hydrocorti sone as needed. keep stool soft, continue to use fiber gummies and keep healthy diet. [id number] Tiesha humphreys MD Main Office [address] [address] [place] [address] 01/23/2021 10:52:21 01/23/2021 12:03:19 Anal fissure 17072627 K60.0 Continue sitz baths prn, use nifedipine ointment bid for a month and other cream prn for pain. Call if not improving. [id number] Nikhil Gray MD Main Office [address] [address] [place] [address] 02/16/2022 10:57:06 02/16/2022 11:42:36 Pain of right wrist 4924654952 50516 M25.531 suspect tendonitis of wrist, recommend RICE, diclofenac gel as needed and a brace if needed. Pain of breast 84278322 N64.4 Heat, massage and increased pumping recommende d. If pain continues or worsens please call/ return. Health Concerns Section Related Observation LastModified by Organization Detai ls LastModified Time None Recorded Concern Status LastModified by Organization Details LastModified Time None Recorded Advance Directives Directive N: Payers Insurance Date Sequence Insurance Name Policy Number Policy Collado Covered Member ID Collado Member ID Guarantor Name 10/28/2022 1 [facility] ([facility] [id number] Dot L L Chapdelaine [id number] Dot L Chapdelaine 02/16/2022 1 [employer] [id number] Dot L Chapdelaine [id number] Dot L Chapdelaine 01/11/2024 1 [place] [facility] Dot L Chapdelaine [id number] Dot L Chapdelaine 07/22/2016 1 [facility] [id number] Ade Chapdelaine [id number] Dot L Chapdelaine 02/16/2022 1 [place] [facility] [id number] Dot L Chapdelaine [id number] Dot L Chapdelaine Notes Date Note Type Note Provider Name and Address Organization Details Recorded Time 01/18/2020 text/html Generic HPI TemplateReported by PatientPt is here for an annual PE.Pt would like to gain weight, she wonders if she is hyperthyroid. She states she eats a lot, 3 meals and snacks, tires to eat carbs and fat. Cannot gain weight. Pt does not exercise. No hx of body image issue and states none now, wants to be 10-15 lbs heavier and loves to eat food. KAM Beard [address] [address], [place], [address], [facility] 01/18/2020 09:47:09 07/10/2020 text/html Telephone visit. Call cell phone.Patient c/o urinary frequency, burning/discomfort during urination, and hematuria. just started yesterday gets uti 1-2x/yr no f/c, back pain Didier Alexander PA-C [address] [facility] [address], [place], [address], [facility] 07/10/2020 09:22:07 01/23/2021 text/html ROS as noted in the HPI Started with rectal pain after BM on tuesday and had some blood on the tissue. ? hemorrhoid , using an otc cream. Tamayo some pain with sitting, itching, pain with BM, stings. Feels external at the edge of the rectum. No abdominal pain, has some baseline constipation. No UTI sx, pt not at this time. No blood in stool, just noted on the paper in area of pain. Juana hernandez, [facility] 01/23/2021 12:58:45 02/13/2021 text/html Generic HPI TemplateReported by PatientPt is here for an annual PE. Diagnosed with anal fissure 2 weeks ago. was treated with 2 ointments. Not having as much pain/ discomfort, no pain with BM but some blood when wiping. KAM Beard [address] [facility] [address], [place], [address], [facility] 02/13/2021 12:17:56 02/16/2022 text/html Generic HPI TemplateReported by PatientPresents with c/o left breast pain and right wrist pain. -1 month PP- has not been but has been pumping.The 1.5-2 weeks has had left breast pain- sharp pain and burning sensation only if she holds her son or if it rubs against something. Sharp pain, lasts a few seconds- from the nipple and spreads out.only on the left, no pain when pumping.No redness, no engorgement, getting milk from that side. - Right wrist pain x 3 weeks, thinks maybe pulled muscle- has been trying to ice it and rest it. Hurts to write, hold a cup of coffee. -Pain to the thumb area, radial side wrist if and 1st digit, no numbness or tingling.She has not taken anything KAM Beard [address] [facility] [address], [place], [address], [facility] 02/16/2022 12:37:29 OBGyn Episode No OBEpisode recorded.
== END 2025-03-06 18:33 | disposition home or self-care (01) ==
PROVIDERS: Emergency Provider Emergency Medicine; PCP Physician Assistant
DX: Z04.1 Encounter for examination and observation following transport accident (principal); M79.604 Pain in right leg
CPT/HCPCS: 73552; 73564; 73590; 99283; 99284

== ENCOUNTER → 2025-03-06 17:23 | Outpatient (BNV) | payer OTHER, SELFPAY | PROVIDERS: Emergency Provider Emergency Medicine; PCP Physician Assistant; Visit Provider Radiology Diagnostic Radiology | DX: Z04.3 Encounter for examination and observation following other accident (principal) | CPT/HCPCS: 73552; 73564; 73590 ==